=== PATIENT | male | born 1985 | race Caucasian/White ===

== ENCOUNTER 2020-12-23 10:15 | Outpatient (REF) | payer MEDICAID, SELFPAY | END 2020-12-23 10:16 | disposition home or self-care (01) | LOC: HO.LAB 10:15 | PROVIDERS: PCP Internal Medicine; Visit Provider Internal Medicine | DX: Z20.822 Contact with and (suspected) exposure to COVID-19 (principal) | CPT/HCPCS: C9803; U0003; U0005 ==

== ENCOUNTER 2024-01-09 15:57 | Emergency (ER) | payer OTHER, SELFPAY ==
--- NOTE | ~2024-01-09 | XR_ITS ---
EXAMINATION: XR CHEST CLINICAL INFORMATION: dyspnea COMPARISON: None available. TECHNIQUE: 2 views of the chest were obtained. FINDINGS: Examination limited by hypoinflation. Left basilar atelectasis. No consolidation, edema, or effusion. Normal cardiomediastinal silhouette. XR/XR chest 2V IMPRESSION: Hypoinflation with left basilar atelectasis. Electronically signed by: Josesito Batista MD 01/09/2024 05:34 PM [facility]
[2024-01-09 16:01] VITALS: BP 128/40; PULSE 115; O2SAT 97
[2024-01-09 16:04] VITALS: PULSE 100; RESP 16; TEMP 36.9; O2SAT 95; BMI 36.2
--- NOTE | 2024-01-09 16:26 | ECG_ITS ---
Test Reason : ETOH Blood Pressure : / mmHG Vent. Rate : 095 BPM Atrial Rate : 096 BPM P-R Int : 168 ms QRS Dur : 094 ms QT Int : 352 ms P-R-T Axes : 039 010 038 degrees QTc Int : 442 ms Normal sinus rhythm Normal ECG No previous ECGs available Referred By: Tom Patel Electronically Signed By:Don Oliver
--- NOTE | 2024-01-09 16:45 | MHC.CARE ---
Pt evaluated in the community by [facility] co-response clinician (Allegra) for alcohol withdrawal with symptoms of delirium (auditory and visual hallucinations). Disposition is for medical clearance. Pt did report SI secondary to alcohol relapse and going through a divorce.
--- NOTE | 2024-01-09 17:09 | ED.GENADULT ---
HPI - General Adult General Chief complaint: ETOH/Substance Use Stated complaint: ETOH WITHDRAWAL Time Seen by Provider: 01/09/24 16:02 Source: patient, RN notes reviewed and old records reviewed Mode of arrival: EMS Limitations: no limitations History of Present Illness ED Provider: Jorge PALU narrative: 38-year-old male past medical history significant for coronary artery disease, PE maintained on Eliquis, obesity, alcohol abuse presents for evaluation of ?alcohol withdrawal. ? Patient reports that he is going through a divorce in his head increasing depression He reports he has been drinking about a half a gal of rum daily with his last drink being last night He reports that he feels nauseous, anxious He reports that he has had auditory hallucinations but he knows the voices are not actually there. ? He denies any fevers, chills, chest pain. He reported that he has some suicidal thoughts without a plan to nursing staff The patient reports a history of alcohol withdrawal seizures No other complaints or concerns at this time Related Data Home Medications ?Medication ?Instructions ?Recorded ?Confirmed apixaban 5 mg tablet (Eliquis) 5 mg PO BID 01/10/24 01/10/24 buspirone 10 mg tablet 20 mg PO TID 01/10/24 01/10/24 gabapentin 300 mg capsule 600 mg PO TID 01/10/24 01/10/24 olanzapine 5 mg tablet 5 mg PO DAILY 01/10/24 01/10/24 prazosin 1 mg capsule 1 mg PO BEDTIME 01/10/24 01/10/24 trazodone 100 mg tablet 200 mg PO BEDTIME PRN Insomnia 01/10/24 01/10/24 Allergies Allergy/AdvReac Type Severity Reaction Status Date / Time No Known Allergies Allergy Verified 01/09/24 16:10 Review of Systems Constitutional: Constitutional: Denies body ache(s), Denies chills and Denies fever(s) Cardiovascular: Cardiovascular: Denies chest pain and Denies dyspnea Respiratory: Respiratory: Denies cough and Denies dyspnea Gastrointestinal: Gastrointestinal: Denies abdominal pain and Reports nausea Integumentary/Breasts: Skin/Breast: Denies rash Neurologic: Reports restless legs and Reports tremor(s) Psychiatric: Psychiatric: Reports anxiety, Reports depression, Reports auditory hallucinations and Reports suicidal ideation PMFSH Social History Social History Alcohol intake: current Alcohol intake frequency: 3 or more drinks per day Smoked in Last 30 Days: No Use of substances other than those prescribed or required for medical reasons: No Advance Directives: No Advance Directives Information Provided: No Do you have a plan to hurt others: No Plan Physical Exam ED Vital Signs: Vital Signs - 24 hr 01/09/24 20:17 01/09/24 20:39 01/10/24 06:46 Temperature 97.8 F 97.8 F Pulse Rate 92 91 87 Respiratory Rate 18 16 19 Blood Pressure 99/56 L 135/79 Pulse Oximetry 98 96 96 Oxygen Delivery Method Room Air Room Air Room Air 01/10/24 09:41 Temperature 97.7 F Pulse Rate 83 Respiratory Rate 18 Blood Pressure 120/77 Pulse Oximetry 97 Oxygen Delivery Method Room Air BMI result Body Mass Index 36.2 Const General: healthy appearing, comfortable, no acute distress, alert and awake Nutritional Appearance: well nourished Orientation/consciousness: patient oriented x3 HENMT Head: Yes normocephalic and Yes atraumatic Eyes Eyelids: Yes eyelids normal Conjunctivae: conjunctivae normal Sclerae: sclerae normal Corneas: corneas normal Pupils: Equal, round and reactive pupils present EOM: EOMs intact bilaterally Neck Neck: Yes full ROM Resp Effort & Inspection: normal respiratory effort, able to speak in complete sentences and not labored Cardio Rate: regular rate Rhythm: regular rhythm GI Inspection: No distended Palpation (GI): Soft to palpation, not firm, nontender, no guarding and not rigid Skin General skin exam: elasticity normal Neuro General: patient oriented x3 Cranial nerves: Yes Equal, round and reactive pupils present and Yes Bilaterally intact EOM present Cognition (Neuro): normal cognition Extrem Other: Moving all extremities well without any obvious deformities Course Reevaluation(s) Reevaluation #1: Patient is medically cleared, he did not have any evidence of severe alcohol withdrawal. I did give him a dose of Ativan IV and he was transitioned to oral Ativan as needed for withdrawal symptoms. He will require care team evaluation Time: 02:08 Reevaluation #2: Patient disposition for inpatient and otherwise appears well with mild withdrawal symptoms that have been appropriately addressed throughout the day. No resp distress, RRR, abd soft/NT Time: 16:29 Medications Administered Generic Name Dose Route Start Last Admin Trade Name Freq PRN Reason Stop Dose Admin Apixaban 5 mg 01/10/24 09:45 01/10/24 11:42 Apixaban 5 Mg Tablet PO 5 mg BID PATRICE Administration Buspirone HCl 20 mg 01/10/24 09:45 01/10/24 16:08 Buspirone Hcl 10 Mg Tablet PO 20 mg TID PATRICE Administration Gabapentin 600 mg 01/10/24 09:45 01/10/24 16:08 Gabapentin 300 Mg Capsule PO 600 mg TID PATRICE Administration Lorazepam 1 mg 01/10/24 12:00 01/10/24 16:08 Lorazepam 1 Mg Tablet PO 01/14/24 11:59 1 mg Q4H PATRICE Administration Taper Olanzapine 5 mg 01/10/24 09:45 01/10/24 11:29 Olanzapine 5 Mg Tablet PO 5 mg DAILY PATRICE Administration Discontinued Medications Generic Name Dose Route Start Last Admin Trade Name Freq PRN Reason Stop Dose Admin Sodium Chloride 1,000 mls @ 999 mls/hr 01/09/24 16:45 01/09/24 20:46 Ns IV 01/09/24 17:45 Infused .Q1H1M PATRICE Infusion Thiamine HCl 500 mg/ Sodium 105 mls @ 210 mls/hr 01/09/24 16:32 01/09/24 19:04 Chloride IV 01/09/24 17:01 Infused ONCE ONE Infusion Folic Acid 1 mg/ Sodium 50.2 mls @ 100.4 mls/hr 01/09/24 16:32 01/09/24 19:40 Chloride IV 01/09/24 17:01 Infused ONCE ONE Infusion Lorazepam 1 mg 01/09/24 18:21 01/09/24 18:32 Lorazepam 2 Mg/Ml Vial IVPUSH 01/09/24 18:22 1 mg STAT STA Administration Lorazepam 2 mg 01/09/24 18:22 01/10/24 09:09 Lorazepam 1 Mg Tablet PO 2 mg Q4H PRN Administration Alcohol Withdrawal Lorazepam 2 mg 01/10/24 09:46 01/10/24 09:45 Lorazepam 1 Mg Tablet PO 01/10/24 09:47 Not Given ONCE ONE Ondansetron HCl 4 mg 01/09/24 16:32 01/09/24 18:32 Ondansetron Hcl 4 Mg/2 Ml Vial IVPUSH 01/09/24 16:33 4 mg ONCE ONE Administration Ondansetron HCl 4 mg 01/10/24 06:47 01/10/24 09:09 Ondansetron Odt 4 Mg Tab.Meg LYNCHINGU 01/10/24 06:48 4 mg ONCE ONE Administration Medical Decision Making Medical Decision Making MDM Narrative: 38-year-old male presents for evaluation of ?alcohol withdrawal per his report. He is not diaphoretic, he is not tremulous or restless. He was not vomiting. He is not tachycardic or hypotensive. He does not appear to be in severe alcohol withdrawal. Plan to work the patient up with EKG, labs. He will be treated with IV fluids, Zofran, thiamine and folic acid. He will require a care team evaluation once medically cleared Differential Diagnosis Differential Diagnoses: The differential diagnosis associated with the presentation includes Alcohol intoxication Alcoholic ketoacidosis Alcohol withdrawal Depression Suicidal ideation Substance abuse Lab Data 01/09/24 17:24 01/09/24 17:24 Labs: Lab Results 01/09/24 01/10/24 Range/Units 17:24 06:07 WBC 5.1 (4.8-10.8) X10*3/uL RBC 4.98 (4.60-5.80) X10*6/uL Hgb 16.0 (14.0-18.0) g/dl Hct 45.7 (42.0-52.0) % MCV 91.8 (80.0-98.0) fL MCH 32.1 (27.0-33.0) pg MCHC 35.0 (31.0-36.0) g/dl RDW 13.1 (11.0-16.0) % Plt Count 290 (160-400) X10*3/uL MPV 9.1 L (9.4-12.4) fL Immature Gran % (Auto) 0.6 H (0.0-0.4) % Neut % (Auto) 41.5 L (45-73) % Lymph % (Auto) 38.8 (20-40) % [place] % (Auto) 11.9 H (2-11) % Eos % (Auto) 6.6 H (0-4) % Baso % (Auto) 0.6 (0-2) % Lymph # (Auto) 2.0 (1.2-4.9) X10*3/uL [place] # (Auto) 0.6 (0.1-1.2) X10*3/uL Eos # (Auto) 0.3 (0.0-0.4) X10*3/uL Baso # (Auto) 0.0 (0.0-0.2) X10*3/uL Abs Immat Gran (auto) 0.03 (0.00-0.03) X10*3/uL Absolute Neuts (auto) 2.1 (2.0-8.3) x10*3/uL Absolute Nucleated RBC 0.000 (0.0-0.012) X10*3/uL Nucleated RBC % (auto) 0.0 (0.0-0.2) /100WBC PT 13.2 H (10.9-12.4) SEC INR 1.1 (0.9-1.1) Sodium 139 (135-145) mmol/L Potassium 4.9 (3.3-5.1) mmol/L Chloride 105 (96-108) mmol/L Carbon Dioxide 21 L (22-29) mmol/L Anion Gap 18 (12-20) BUN 19 H (9-16) mg/dL Creatinine 1.01 (0.5-1.4) mg/dL Estim Creat Clear Calc 143.4 Estimated GFR > 60 Random Glucose 121 H (60-115) mg/dL Calcium 9.1 (8.4-10.2) mg/dL Phosphorus 3.0 (2.7-4.5) mg/dL Magnesium 2.0 (1.6-2.6) mg/dL Total Bilirubin 0.2 (0.0-1.0) mg/dL AST 39 H (5-37) U/L ALT 27 (0-40) U/L Alkaline Phosphatase 85 (39-117) U/L Troponin I High Sens 7.9 (<3.5-35.0) ng/L Total Protein 7.8 (6.5-8.0) g/dL Albumin 4.3 (3.5-5.0) g/dL Lipase 133 H (8-78) U/L Urine Color Yellow Urine Appearance Clear Urine pH 6.0 (5.0-9.0) Ur Specific [place] >= 1.030 H (1.005-1.025) Urine Protein Trace (Neg-Trace) mg/dL Urine Glucose (UA) Negative (Negative) mg/dL Urine Ketones Trace (Negative) mg/dL Urine Blood Negative (Negative) Urine Nitrite Negative (Negative) Ur Leukocyte Esterase Negative (Negative) Urine RBC 0-2 (0-2) /HPF Urine WBC 0-5 (0-5) /HPF Ur Squamous Epith Cells 0-2 (0-2) /HPF Urine Bacteria None Seen (None Seen) Hyaline Casts 0-2 (0-2) /LPF Urine Opiates Screen Not Detected (Not Detect) Ur Buprenorphine Scrn Not Detected (Not Detect) ng/mL Ur Oxycodone Screen Not Detected (Not Detect) ng/mL Urine Methadone Screen Not Detected (Not Detect) ng/mL Urine Fentanyl Screen Not Detected (Not Detect) Ur Barbiturates Screen POSITIVE H (Not Detect) Ur Phencyclidine Scrn Not Detected (Not Detect) Ur Amphetamines Screen Not Detected (Not Detect) U Benzodiazepines Scrn Not Detected (Not Detect) Urine Cocaine Screen Not Detected (Not Detect) U Marijuana (THC) Screen POSITIVE H (Not Detect) Ethyl Alcohol 197 mg/dL Discharge Plan Discharge Clinical Impression: Alcohol abuse Depressed Qualifiers: Depression Type: unspecified Qualified Code(s): F32.A - Depression, unspecified Patient Disposition: Xfer Psychiatric Hosp Transfer Details: TO: [facility], [address] [place] [address], [place], [place] Prescriptions: No Action prazosin 1 mg capsule 1 mg PO BEDTIME olanzapine 5 mg tablet 5 mg PO DAILY trazodone 100 mg tablet 200 mg PO BEDTIME PRN (Reason: Insomnia) buspirone 10 mg tablet 20 mg PO TID gabapentin 300 mg capsule 600 mg PO TID Eliquis 5 mg tablet 5 mg PO BID Print Language: Cymro
--- NOTE | 2024-01-09 17:19 | PC.NURSE ---
Patient difficult stick, meds / labs delayed d/t need for US line.
[2024-01-09 17:27] LABS: MANUAL DIFF FLAG NO
[2024-01-09 17:32] LABS: Basophils Percent Auto 0.6 % (0-2); Eosinophils Absolute Auto 0.3 X10*3/uL (0.0-0.4); Eosinophils Percent Auto 6.6 % (0-4); Hematocrit 45.7 % (42.0-52.0); Imm Gran Abs Auto 0.03 X10*3/uL (0.00-0.03); Imm Gran Pct Auto 0.6 % (0.0-0.4); Lymphocytes Percent Auto 38.8 % (20-40); Mean Corpuscular Hemoglobin 32.1 pg (27.0-33.0); Mean Corpuscular Volume 91.8 fL (80.0-98.0); Mean Platelet Volume 9.1 fL (9.4-12.4); Monocytes Absolute Auto 0.6 X10*3/uL (0.1-1.2); Monocytes Percent Auto 11.9 % (2-11); Neutrophils Absolute Auto 2.1 x10*3/uL (2.0-8.3); Neutrophils Percent Auto 41.5 % (45-73); Platelet Count 290 X10*3/uL (160-400); Red Blood Count 4.98 X10*6/uL (4.60-5.80); Red Cell Distribution Width 13.1 % (11.0-16.0); White Blood Count 5.1 X10*3/uL (4.8-10.8)
[2024-01-09 17:37] LABS: INTERNATIONAL NORM RATIO 1.1 (0.9-1.1); Prothrombin Time 13.2 SEC (10.9-12.4)
[2024-01-09 17:56] LABS: Ethanol 197 mg/dL
[2024-01-09 17:57] LABS: Alanine Aminotransferase 27 U/L (0-40); Albumin Level 4.3 g/dL (3.5-5.0); Alkaline Phosphatase 85 U/L (39-117); Anion Gap 18 (12-20); Aspartate Amino Transferase 39 U/L (5-37); Bilirubin Total 0.2 mg/dL (0.0-1.0); Blood Urea Nitrogen 19 mg/dL (9-16); Calcium 9.1 mg/dL (8.4-10.2); Carbon Dioxide 21 mmol/L (22-29); Chloride 105 mmol/L (96-108); Creatinine Clr Calc Pharmacy 143.4; Estimated Glomerular Filt Rate > 60; Glucose Random 121 mg/dL (60-115); Lipase 133 U/L (8-78); Potassium 4.9 mmol/L (3.3-5.1); Sodium 139 mmol/L (135-145); Total Protein 7.8 g/dL (6.5-8.0)
[2024-01-09 18:05] LABS: Troponin-I High Sensitivity 7.9 ng/L (<3.5-35.0)
[2024-01-09] MEDS: ondansetron HCL 4 MG/2 ML VIAL IVPUSH (18:32)
[2024-01-09] MEDS: LORazepam 2 MG/ML VIAL 1 MG IVPUSH (18:32)
[2024-01-09] MEDS: 0.9 % Sodium Chloride 1,000 ML 999 ML IV (18:33)
[2024-01-09] MEDS: Thiamine HCL 500 MG in 0.9 % Sodium Chloride 100 ML 210 MG IV (18:33)
[2024-01-09] MEDS: Folic Acid 1 MG in 0.9 % Sodium Chloride 50 ML 100.4 MG IV (19:04)
[2024-01-09 20:17] VITALS: PULSE 92; RESP 18; O2SAT 98
[2024-01-09 20:39] VITALS: BP 99/56; PULSE 91; RESP 16; TEMP 36.6; O2SAT 96
--- NOTE | 2024-01-09 20:43 | PC.NURSE ---
Patient medically cleared, okay to transfer to pod. RN to RN phone report given to Anaya. All questions answered. Accepting RN and patient aware UA/utox needed. Patient wearing his own boxers d/t no additional pod johnnies or pod pants available, patient's transfer to pod delayed until appropriate attire can be acquired. energy project manager Lola aware.
--- NOTE | 2024-01-09 20:46 | PC.NURSE ---
Benjamin deras w/ patient's iv removal, full liter infusion not necessary. MAR updated.
--- NOTE | 2024-01-09 21:41 | PC.NURSE ---
[facility] to pod w/o issue.
[2024-01-10 06:16] LABS: Appearance Urine Clear; Color Urine Yellow; Glucose Urine UA Negative (Negative); Leukocyte Esterase Urine Negative (Negative); Nitrite Urine Negative (Negative); Specific Gravity - Urine >= 1.030 (1.005-1.025); Urine Blood Negative (Negative); Urine Ketones Trace mg/dL (Negative); Urine Protein Trace mg/dL (Neg-Trace)
[2024-01-10 06:22] LABS: Bacteria Urine None Seen (None Seen); Hyaline Casts Urine 0-2 /LPF (0-2); RBC Urine 0-2 /HPF (0-2); Squamous Epithelial Cell Urine 0-2 /HPF (0-2); WBC Urine 0-5 /HPF (0-5)
[2024-01-10 06:27] LABS: Amphetamine Screen Urine Not Detected (Not Detect); Barbiturates, Urine POSITIVE (Not Detect); Benzodiazepines Screen Urine Not Detected (Not Detect); Buprenorphine Scr Not Detected (Not Detect); Cannabinoid Screen Urine POSITIVE (Not Detect); Cocaine Screen Urine Not Detected (Not Detect); Fentanyl, urine Not Detected (Not Detect); Methadone Screen, Urine Not Detected (Not Detect); Opiate Screen Urine Not Detected (Not Detect); Oxycodone Screen Urine Not Detected (Not Detect); Phencyclidine Screen Urine Not Detected (Not Detect)
[2024-01-10 06:46] VITALS: BP 135/79; PULSE 87; RESP 19; TEMP 36.6; O2SAT 96
[2024-01-10] MEDS: LORazepam 1 MG TABLET 2 MG PO (09:09)
[2024-01-10] MEDS: Ondansetron ODT 4 MG TAB.RAPDIS TRANSLINGU (09:09)
--- NOTE | 2024-01-10 09:14 | MHC.CARE ---
Pt meets [facility] and will be most appropriate to admit to a DUAL DX program secondary to his suicidal ideation mixed with severe alcohol use disorder. Section 12a in chart. Provider in agreement.
[2024-01-10 09:41] VITALS: BP 120/77; PULSE 83; RESP 18; TEMP 36.5; O2SAT 97
--- NOTE | 2024-01-10 09:57 | PC.NURSE ---
This RN is approached by Aditi from [facility]. Aditi reports in meeting with Pt this AM he reports a significant history with ETOH withdrawal and reports using a large amount of Rum per day. This RN met with Pt for eval. VSS, A&Ox3, afebrile. Pt c/o heightened anxiety, hallucinations, nausea, sweats. CIWA = 11 at this time. body builder and Dr. Dela Cruz notified. Dr. Dela Cruz places orders for detox; will continue to monitor.
[2024-01-10] MEDS: LORazepam 1 MG TABLET PO ×2 (11:29→16:08)
[2024-01-10] MEDS: busPIRone HCl 10 MG TABLET 20 MG PO ×2 (11:29→16:08)
[2024-01-10] MEDS: Gabapentin 300 MG CAPSULE 600 MG PO ×2 (11:29→16:08)
[2024-01-10] MEDS: OLANZapine 5 MG TABLET PO (11:29)
[2024-01-10] MEDS: Apixaban 5 MG TABLET PO (11:42)
--- NOTE | 2024-01-10 11:49 | PC.NURSE ---
Pt resting quietly with eye close and lights dimmed. Pt wakes easily and is calm, cooperative. A&Ox3, facial symmetry present, and skin is warm and dry. No tremors present. Pt given AM medications; meds taken with out issue. Pt inquires about moving to a different location within the pod. Pt advised once BH 3 is cleaned, he can be moved. NAD noted at this time.
--- NOTE | 2024-01-10 11:59 | MHC.CARE ---
Addendum entered by Mary Vargas 01/10/24 13:32: Per Iona at [facility], Pt has been accepted to [facility]. [facility], Dr Resendez is the accepting doctor, ETA is 6:00PM and nurse to nurse is not needed. T/w spoke with Antonia Almendarez nurse and gave accepting information. racing secretary, ED charge nurse, Care Team informed through tiger text. Addendum entered by Kayleigh Cardenas 01/10/24 12:43: [facility] canceled the admission due to concerns that he will need medical admission while going through withdrawal as he has a hx of these events. Bed search will continue. Original Note: RAD Team completed a state wide Dual bed search for Pt. Pt has been accepted to [address] [address] Anthony Kuhn is the accepting doctor. ETA is 3:00PM, Nurse to nurse is not needed. Pt will be bringing his medication ( Apixaban (Eliquis) with him because the facility does not have that medication. Helen from [facility] asked to have Pt informed that if his Eliquis runs out while at the facility they have Xarelto. Pod nurse Antonia, Care Team, Ed Charge Nurse informed.
[2024-01-10 16:52] VITALS: BP 126/92; PULSE 87; RESP 16; TEMP 36.9; O2SAT 99
== END 2024-01-10 16:53 ==
PROVIDERS: Physician Assistant; Emergency Provider Emergency Medicine Emergency Medical Services
DX: F10.10 Alcohol abuse, uncomplicated (principal); Y90.6 Blood alcohol level of 120-199 mg/100 ml; F32.A Depression, unspecified; R45.851 Suicidal ideations; R44.0 Auditory hallucinations; Z72.89 Other problems related to lifestyle; Z63.5 Disruption of family by separation and divorce
CPT/HCPCS: 36415; 71046; 80053; 80307; 81001; 83690; 83735; 84100; 84484; 85025; 85610; 93005; 96361; 96374; 96375; 99285; J2060; J2405; J3411

== ENCOUNTER → 2024-01-09 16:26 | Outpatient (BNV) | payer OTHER, SELFPAY | PROVIDERS: Emergency Provider Emergency Medicine Emergency Medical Services; Visit Provider Internal Medicine Cardiovascular Disease | DX: F10.239 Alcohol dependence with withdrawal, unspecified (principal) | CPT/HCPCS: 93010 ==